=== PATIENT | female | born 1955 | race Caucasian/White ===

== ENCOUNTER 2016-07-31 05:41 | Day surgery (SDC) | payer OTHER ==
[~2016-07-31] VITALS: Ht 167.6 cm; Wt 86.0 kg
[~2016-07-31 05:41] MED LIST: ATIVAN0.5 MG PO; BUSPAR5 MG PO; CALCIUM 600 +1 EA11 PO; CALCIUM 600 +1 EACH PO; CIPRO250 MG PO; COLACE100 MG PO; FOSAMAX70 MG PO; GLIPIZIDE-METF1 EAC2 PO; GLUCOPHAGE1000 MG PO; GLUCOTROL10 MG PO; HYZAAR 50-121 TABLET PO; JANUVIA25 M1 PO; LAMICTAL150 M1 PO; LEXAPRO10 MG PO; MEGACE40 MG PO; METFORMIN HCL1000 MG PO; MIRALAX255 GM PO; NIZORAL SHAMPO120 ML TP; NON-ASPIRIN EX500 M2 PO; PERIDEX1 ML MM; PERIDEX1 ML PO; SENNA S TABLET1 EACH PO; SYNTHROID88 MCG PO; TRAMADOL HCL50 MG PO; TRICOR145 MG PO; TYLENOL EXTRA500 MG PO; ULTRAM50 MG PO; VASELINE454 GM TP; ZOCOR10 MG PO; ZOCOR20 MG PO; [UNRECOGNIZED DRUG - OTHER]; [UNRECOGNIZED DRUG - OTHER] TP
[2016-07-31 07:24] LABS: POINT-OF-CARE METER ID UU14174212; POINT-OF-CARE USER ID AHSRSCSLC11
[2016-07-31 07:40] VITALS: BP 158/67
[2016-07-31 07:55] LABS: METH RESISTANT S AUREUS PCR NEGATIVE (NEGATIVE)
[2016-07-31 07:56] LABS: PROBE CHECK PASS; SPECIMEN PROCESSING CONTROL PASS
[2016-07-31] MEDS ORDERED: NORCO 5/3251 TABLET PO (12:20)
[2016-07-31 12:21] LABS: POINT-OF-CARE METER ID UU13113675
[2016-07-31 14:20] VITALS: BP 162/77
[2016-07-31 15:00] VITALS: BP 149/70
== END 2016-07-31 15:15 | disposition home or self-care (01) ==
LOC: SDC 05:41 → NUC 07:30 → SDC 15:15
PROVIDERS: Surgery
DX: C50.412 Malignant neoplasm of upper-outer quadrant of left female breast (principal); C77.3 Secondary and unspecified malignant neoplasm of axilla and upper limb lymph nodes; Z17.0 Estrogen receptor positive status [ER+]; Z85.841 Personal history of malignant neoplasm of brain; I10 Essential (primary) hypertension; E11.9 Type 2 diabetes mellitus without complications; E78.5 Hyperlipidemia, unspecified; Z79.84 Long term (current) use of oral hypoglycemic drugs; Z80.3 Family history of malignant neoplasm of breast; Z80.0 Family history of malignant neoplasm of digestive organs; Z83.3 Family history of diabetes mellitus; Z82.49 Family history of ischemic heart disease and other diseases of the circulatory system
CPT/HCPCS: 78195; 78999; 82948; 87641; 88305; 88307; A9541; J0690; J1100; J1170; J2250; J2405; J3010; J7050

== ENCOUNTER → 2016-12-22 | Outpatient (CLI) | payer OTHER ==
[~2016-12-22] VITALS: Ht 167.6 cm; Wt 85.3 kg
[~2016-12-22] MED LIST changes: +ARIMIDEX1 MG PO; +FISH OIL 1,0001 EAC7 PO; +FLEXERIL5 MG PO; +NORCO 5/3251 TABLET PO; +PERIDEX473 ML MM; +XANAX0.25 MG PO
[2016-12-22 13:23] LABS: POINT-OF-CARE METER ID UU14107333
== END | disposition home or self-care (01) ==
LOC: AMB 12:21
PROVIDERS: Internal Medicine Gastroenterology
PROC: 0DBL8ZX Excision of Transverse Colon, Via Natural or Artificial Opening Endoscopic, Diagnostic (ICD-10-PCS; principal; 2016-12-22)
DX: Z12.11 Encounter for screening for malignant neoplasm of colon (principal); D12.3 Benign neoplasm of transverse colon; Z86.010 Personal history of colon polyps; Z80.0 Family history of malignant neoplasm of digestive organs; C50.912 Malignant neoplasm of unspecified site of left female breast; E11.9 Type 2 diabetes mellitus without complications; Z79.84 Long term (current) use of oral hypoglycemic drugs; K21.9 Gastro-esophageal reflux disease without esophagitis; G40.909 Epilepsy, unspecified, not intractable, without status epilepticus; Z86.73 Personal history of transient ischemic attack (TIA), and cerebral infarction without residual deficits; Z85.841 Personal history of malignant neoplasm of brain; Z92.21 Personal history of antineoplastic chemotherapy
CPT/HCPCS: 82948; 88305